=== PATIENT | female | born 1965 | race Native Hawaiian/Other Pacific Islander ===

== ENCOUNTER 2017-08-11 15:27 | Outpatient (CLI) | payer OTHER ==
[~2017-08-11 15:27] MED LIST: AMBIEN5 MG OR; CELEXA40 MG OR; CIPRODEX1 ML OT; CYCL10TA35 PO; ESTR1TAB13 PO; MILLIPRED DP5 MG OR; Z-PAK PO
== END 2017-08-11 17:00 | disposition home or self-care (01) ==
LOC: MAMMO 15:27
DX: N64.4 Mastodynia (principal)

== ENCOUNTER 2019-06-07 08:08 | Day surgery (SDC) | payer OTHER ==
[2019-06-07 08:46] LABS: PLATELET COUNT 353 K/uL (152-353)
[2019-06-07 08:54] LABS: POTASSIUM 3.8 mmol/L (3.6-5.2)
== END 2019-06-07 13:16 | disposition home or self-care (01) ==
LOC: OR 08:08
PROVIDERS: Student in an Organized Health Care Education/Training Program
PROC: 0FT44ZZ Resection of Gallbladder, Percutaneous Endoscopic Approach (ICD-10-PCS; principal; 2019-06-07)
DX: K81.1 Chronic cholecystitis (principal); K82.8 Other specified diseases of gallbladder
CPT/HCPCS: 80053; 85027; J0132; J0330; J1100; J1170; J2001; J2250; J2405; J2704; J2710; J2765; J3010; J3490

== ENCOUNTER 2022-05-11 11:19 | Outpatient (CLI) | payer OTHER | END 2022-05-11 19:11 | disposition home or self-care (01) | LOC: MAMMO 11:19 | PROVIDERS: ATTEND Obstetrics & Gynecology | DX: Z12.31 Encounter for screening mammogram for malignant neoplasm of breast (principal) ==